=== PATIENT | male | born 1965 | race African-American/Black ===

== ENCOUNTER 2016-11-17 09:21 | Emergency (ER) | payer SELFPAY ==
[2016-11-17 10:16] LABS: ALT (SGPT) 34 U/L (8-55); AST (SGOT) 27 U/L (5-34); Albumin 4.2 g/dL (3.5-5.0); Alkaline Phosphatase 92 U/L (40-150); Anion Gap 13 mmol/L (10-20); BUN (Urea Nitrogen) 15 mg/dL (8.9-20.6); Bilirubin, Total 0.3 mg/dL (0.2-1.2); Calc. Creatinine Clearance 0 mL/min (70-130); Calcium 9.5 mg/dL (7.8-10.44); Carbon Dioxide 24 mmol/L (22-29); Chloride 108 mmol/L (98-107); Estimated GFR-MDRD 85; Globulin 2.8 g/dL (2.4-3.5); Glucose 107 mg/dL (70-105); Potassium 4.4 mmol/L (3.5-5.1); Sodium 141 mmol/L (136-145)
--- NOTE | 2016-11-17 10:17 | RAD ---
PORTABLE CHEST 1 VIEW: Date: 11/17/16 Time: 0941 hours HISTORY: Chest pain. FINDINGS: The heart size is normal. The lungs are well expanded without focal areas of consolidation, pneumoth orax, or pleural effusions. IMPRESSION: No radiographic evidence of acute cardiopulmonary process. POS: [facility]
[2016-11-17 10:18] LABS: White Blood Cell (WBC) Count 4.9 thou/uL (4.8-10.8)
[2016-11-17 10:19] LABS: CKMB 1.3 ng/mL (0-6.6); Hemoglobin 15.2 g/dL (14.0-18.0); Manual Diff?? YES; Mean Corpuscular HGB CONC 34.3 g/dL (32.0-36.0); Mean Corpuscular Hemoglobin 32.6 pg (27.0-31.0); Platelet Count 220 thou/uL (130-400); RBC Distribution Width 13.5 % (11.5-14.5); Red Blood Cell (RBC) Count 4.65 mill/uL (4.70-6.10); Troponin I Less than 0.010 ng/mL (< 0.028)
[2016-11-17 10:29] LABS: Lymphocytes 26 % (21-51); MDiff Complete? YES; Monocytes 6 % (0-10); Neutrophil 65 % (42-75)
[2016-11-17 10:30] LABS: Eosinophils 3 % (0-10); PLT Morphology Comment Appears Adequate; RBC Morphology Normal
== END 2016-11-17 10:52 | disposition home or self-care (01) ==
LOC: MADERS 09:21
DX: S39.012A Strain of muscle, fascia and tendon of lower back, initial encounter (principal); M54.12 Radiculopathy, cervical region; I10 Essential (primary) hypertension; F17.210 Nicotine dependence, cigarettes, uncomplicated; X58.XXXA Exposure to other specified factors, initial encounter
CPT/HCPCS: 71010; 80053; 82553; 84484; 85025; 93005; 94760

== ENCOUNTER 2018-03-28 11:00 | Emergency (ER) | payer SELFPAY ==
[~2018-03-28 11:00] MED LIST: Iopamidol 370 76% 100 ML VIAL ONE
[2018-03-28 12:03] LABS: #Eosinphils 0.2 thou/uL (0.0-0.7); #Lymphocytes 1.3 thou/uL (1.20-3.40); #Monocytes 0.4 thou/uL (0.11-0.59); #Neutrophils 2.5 thou/uL (1.40-6.50); %Basophils 0.8 % (0.0-1.0); %Eosinophils 3.8 % (0.0-10.0); %Lymphocytes 29.4 % (21.0-51.0); %Monocytes 9.8 % (0.0-10.0); %Neutrophils 56.2 % (42.0-75.0); Hemoglobin 14.1 g/dL (14.0-18.0); Mean Corpuscular HGB CONC 31.4 g/dL (32.0-36.0); Mean Corpuscular Hemoglobin 29.3 pg (27.0-31.0); Mean Corpuscular Volume 93.5 fL (78.0-98.0); Mean Platelet Volume 7.6 fL (7.4-10.4); Platelet Count 265 thou/uL (130-400); RBC Distribution Width 13.1 % (11.5-14.5); Red Blood Cell (RBC) Count 4.82 mill/uL (4.70-6.10); White Blood Cell (WBC) Count 4.5 thou/uL (4.8-10.8)
[2018-03-28 12:23] LABS: ALT (SGPT) 41 U/L (8-55); AST (SGOT) 26 U/L (5-34); Albumin 3.9 g/dL (3.5-5.0); Alkaline Phosphatase 75 U/L (40-150); Anion Gap 10 mmol/L (10-20); BUN (Urea Nitrogen) 13 mg/dL (8.4-25.7); Bilirubin, Total 0.4 mg/dL (0.2-1.2); Calc. Creatinine Clearance 0 mL/min (70-130); Calcium 9.3 mg/dL (7.8-10.44); Carbon Dioxide 28 mmol/L (22-29); Chloride 107 mmol/L (98-107); Estimated GFR-MDRD Greater than 90; Globulin 2.6 g/dL (2.4-3.5); Glucose 91 mg/dL (70-105); Potassium 4.5 mmol/L (3.5-5.1); Protein, Total 6.5 g/dL (6.0-8.3); Sodium 140 mmol/L (136-145)
--- NOTE | 2018-03-28 13:04 | CT ---
CT PELVIS WITH IV CONTRAST: History: Pelvic pain. Inguinal hernia. FINDINGS: Urinary bladder is incompletely distended. No pelvic masses are apparent. Lack of oral contrast limit s evaluation of the bowel. Small amount of abdominal fat extends through the right internal inguinal ring into the inguinal luis l. No bowel is present, however. IMPRESSION: Small amount of abdominal fat within a small right inguinal hernia. No bowel is present at the time o f imaging. POS: [facility]
== END 2018-03-28 12:30 | disposition home or self-care (01) ==
LOC: MADERS 11:00
DX: K46.9 Unspecified abdominal hernia without obstruction or gangrene (principal); I10 Essential (primary) hypertension; F17.210 Nicotine dependence, cigarettes, uncomplicated
CPT/HCPCS: 72193; 80053; 83605; 85025

== ENCOUNTER 2024-03-17 21:19 | Emergency (ER) | payer SELFPAY ==
[2024-03-17] MEDS ORDERED: Ibuprofen 800 MG TAB ONE (21:28)
[2024-03-17] MEDS ORDERED: Bacitracin 1 PK ONE (21:28)
[2024-03-17] MEDS ORDERED: Lidocaine 1% w/Epinephrine 1:100K 20 ML VIAL ONE (21:28)
[2024-03-17] MEDS ORDERED: Boostrix 0.5 ML (Tdap) VIAL (>/=7 yrs of age) ONE (21:29)
== END 2024-03-17 22:11 | disposition home or self-care (01) ==
LOC: MADERS 21:19
DX: S41.112A Laceration without foreign body of left upper arm, initial encounter (principal); S00.212A Abrasion of left eyelid and periocular area, initial encounter; S31.114A Laceration without foreign body of abdominal wall, left lower quadrant without penetration into peritoneal cavity, initial encounter; I10 Essential (primary) hypertension; F17.210 Nicotine dependence, cigarettes, uncomplicated; W18.02XA Striking against glass with subsequent fall, initial encounter
CPT/HCPCS: 12002; 90471; 90715